=== PATIENT | male | born 1955 | race Two or more races ===

== ENCOUNTER 2024-06-06 09:24 | Emergency (ER) | payer MEDICARE, MEDICAID, SELFPAY ==
--- NOTE | 2024-06-06 | XR_ITS ---
Examination: MRI brain without intravenous contrast. Date and time of exam: June 06, 2024 1215 hours INDICATIONS: Nausea vertigo headache beginning 4:00 AM today Technique: Multiple axial and sagittal images of the brain obtained. Siemens high-resolution 1.5 Patricia short bore scanners utilized. Sagittal sections, T1-weighted, TR 500, TE 14, are performed. Axial sections proton-density and T2-weighted have been obtained. Inversion recovery axial images, TR 9, 260, TE 111, TI 2500. Diffusion weighted images, axial sections, TR 4800, TE 128, B value 1000 Axial sections, ADC map, TR 4800, TE 128 Findings: Enlargement of the sella turcica is not present. The optic chiasm and infundibular are not remarkable. Prepontine and interpeduncular cisterns are not enlarged. There is no localized enlargement of the medulla or lesley. Fourth ventricle and cerebellar tonsils appear normal in position. No subacute area of hemorrhage density is seen. Mass in the cerebellopontine angle region is not evident. Globes symmetrical. Orbital musculature including medial lateral rectus muscles do not exhibit abnormality. Diffusion-weighted images demonstrate no focus of restricted diffusion. Increased white matter signal not prominent Mass effect upon the ventricular system is not identified. Impression: Negative for acute hemorrhage, mass effect or midline shift No acute infarct
--- NOTE | 2024-06-06 09:38 | XR_ITS ---
Examination: CT brain head without contrast. 2-D sagittal coronal reconstructions Date and time of exam:June 06, 2024 1023 hours INDICATIONS: Severe headaches with dizziness today CTDI: vol (mGy):54 DLP: (mGycm):1060 Technique: Multiple CT axial sections of the brain have been obtained, 5 mm slice thickness. Contrast has not been administered. 2-D sagittal, coronal reconstructions have been obtained Low dose protocols were performed. One or more of the following dose reduction techniques were used; automated exposure control, adjustment of the mA and/or KV according to patient size, use of iterative reconstruction technique. Findings: No significant ventricular enlargement. Intra-axial or extra-axial hemorrhage density is not seen. No mass effect or midline shift Basal cisterns are not remarkable. Fourth ventricle is midline. Cranial vault intact. Impression: Negative for acute hemorrhage, mass effect or midline shift Chronic left mastoiditis As clinically warranted, consider brain MRI follow-up, stroke protocol
--- NOTE | 2024-06-06 09:39 | EKG_ITS ---
[facility] Test Date: 2024-06-06 Pat Name: CONTRERAS MOURA Department: Room: - Gender: Male Quality Assurance Coordinator: : [id number] Requested By: Rafa Ramos Order Number: [id number] Reading MD: Rafa Ramos Measurements Intervals [place] Rate: P: ME: QRS: QRSD: T: QT: QTc: Interpretive Statements NO FURTHER INTERPRETATION POSSIBLE ATYPICAL ECG WARNING: DATA QUALITY MAY AFFECT INTERPRETATION No previous ECG available for comparison /store/S0/[id number]
--- NOTE | 2024-06-06 09:40 | PD.EDRME ---
Rapid Medical Screening Exam [facility] Arrival date/time: 06/06/24 09:24 69-year-old male with no known medical history presents to the emergency room with a chief complaint of a right-sided headache, dizziness, nausea x 1 day. Patient states the symptoms began this morning. at bedside states the patient also has some right-sided facial droop that began 1 week ago. Patient denies any unilateral numbness. I have greeted and performed a focused initial assessment of this patient. A comprehensive ED assessment and evaluation of the patient, analysis of all test results, and completion of the medical decision making process will be conducted by additional ED providers. Chief Complaint: Dizziness Vital signs reviewed by provider: Yes
[2024-06-06 10:00] VITALS: BP 117/79; PULSE 54; RESP 20; TEMP 36.4; O2SAT 98; BMI 29.4
[2024-06-06 10:47] LABS: Basophils # (Auto) 0.1 Thou/mm3 (0.0-0.2); Basophils % (Auto) 1 % (0-2.5); Eosinophils # (Auto) 0.1 Thou/mm3 (0.0-0.5); Eosinophils % (Auto) 1 % (0-10); Hematocrit 46.8 % (41.0-53.0); Hemoglobin 15.3 g/dL (13.5-16.0); Immature Granulocytes % (Auto) 1 % (0-0); Immature Granulocytes Auto 0.03 Thou/mm3 (0.00-0.00); Lymphocytes # (Auto) 1.3 Thou/mm3 (1.0-4.8); Lymphocytes % (Auto) 22 % (10-50); Mean Corpuscular HGB Conc 32.7 g/dl (31.0-37.0); Mean Corpuscular Volume 76 fL (80-100); Monocytes # (Auto) 0.5 Thou/mm3 (0.0-0.8); Monocytes % (Auto) 9 % (0-12); Neutrophils # (Auto) 4.1 Thou/mm3 (1.8-7.7); Neutrophils % (Auto) 67 % (37-80); Nucleated Red Blood Cell % 0 /100 WBC (0); Platelet Count 268 Thou/mm3 (140-440); RDW Standard Deviation 42.6 fL (35.1-43.9); Red Blood Count 6.13 Miln/mm3 (4.50-5.90); White Blood Count 6.2 Thou/mm3 (3.8-10.6)
[2024-06-06 10:51] VITALS: BP 162/91; PULSE 52; RESP 15; O2SAT 98
[2024-06-06 11:04] LABS: Alanine Aminotransferase 23 U/L (10-49); Albumin, Serum 4.2 gm/dL (3.4-4.8); Albumin/Globulin Ratio 1.5 (1.2-2.2); Alkaline Phosphatase 75 U/L (46-116); Anion Gap 7 (7-16); Aspartate Amino Transferase 22 U/L (0-34); BUN/Creatinine Ratio 13 Ratio (12-20); Bilirubin,Total 0.9 mg/dL (0.3-1.2); Blood Urea Nitrogen 15 mg/dL (9-23); Calcium 9.8 mg/dL (8.3-10.6); Calcium (Corrected) 9.8 mg/dL (8.5-10.1); Carbon Dioxide 22.8 mMol/L (20.0-31.0); Chloride 107 mMol/L (98-107); Creatinine (Component) 1.2 mg/dL (0.6-1.3); Estimated Creatinine Clearance 67.5 mL/min (>60); Globulin 2.8 gm/dL (2.3-3.5); Glucose 190 mg/dL (74-106); Magnesium 1.8 mg/dL (1.6-2.6); Osmolality,Calculated 279 (275-295); Potassium 4.6 mMol/L (3.4-5.1); Sodium 137 mMol/L (136-145); Troponin I < 0.020 ng/mL (0.0-0.045); eGFR > 60 See Note
[2024-06-06 11:05] LABS: Collection Type, Urine Clean Catch
[2024-06-06 11:10] LABS: INR 1.1 (0.9-1.3); Partial Thromboplastin Time 27.9 Seconds (22.0-36.0); Prothrombin Time 11.9 Seconds (9.0-12.2)
[2024-06-06 11:16] LABS: Bilirubin,Urine Negative (Negative); Blood,Urine Negative (Negative); Clarity,Urine Clear (Clear/Hazy); Color,Urine Lt-Yellow (Lt Yel-Yel); Glucose, Urine Negative (Negative); Ketones,Urine Negative (Negative); Leukocyte Esterase,Urine Negative (Negative); Nitrite,Urine Negative (Negative); Protein,Urine Negative (Neg - Trace); RBC,Urine < 1 /hpf (0-3); Specific Gravity,Urine 1.021 (1.001-1.035); Squamous Epithelial Cell,Urine 3 /hpf (0-5); Urobilinogen,Urine Negative mg/dL (0.0-1.0); WBC,Urine 1 /hpf (0-5)
--- NOTE | 2024-06-06 11:16 | EDNOTE_ITS ---
ED General RME/HPI General Chief complaint: Dizziness Stated complaint: NAUCEOUS, DIZZY, HEADACHE SINCE 4AM Time Seen by Provider: 06/06/24 11:10 Arrival date/time: 06/06/24 09:24 CC: Right facial numbness, and a reported altered gait onset this morning. Patient states he is also and having trouble with his right eye however this was seen by an ophthalmology after he had a corneal abrasion several weeks ago. reports all of this this morning including nausea and a right sided headache. Patient is awake alert oriented nontoxic-appearing no focal deficits RME / HPI RME / HPI narrative: 06/06/24 09:24 69-year-old male with no known medical history presents to the emergency room with a chief complaint of a right-sided headache, dizziness, nausea x 1 day. Patient states the symptoms began this morning. at bedside states the patient also has some right-sided facial droop that began 1 week ago. Patient denies any unilateral numbness. I have greeted and performed a focused initial assessment of this patient. A comprehensive ED assessment and evaluation of the patient, analysis of all test results, and completion of the medical decision making process will be conducted by additional ED providers. Related Data Previous Rx's ?Medication ?Instructions ?Recorded valacyclovir 1 gram tablet 1,000 mg PO TID #21 tabs (Valtrex) ondansetron 4 mg disintegrating 4 mg PO Q8H #10 tabs 0 06/06/24 tablet Allergies Allergy/AdvReac Type Severity Reaction Status Date / Time No Known Allergies Allergy Verified 06/06/24 09:30 Review of Systems Review of Systems Narrative Review of Systems: GEN: No fever, no chills, no weight loss EYES: No discharge, no visual changes, no pain HEENT: No ear pain, no congestion, no sore throat PULM: No shortness of breath, no cough, no congestion CV: No chest pain, no dyspnea on exertion, no palpitations GI: No nausea, no vomiting, no diarrhea, no pain, no constipation : No frequency, no urgency, no dysuria MUSC/SKEL: No joint pain, no back pain SKIN: No rash PSYCH: No hallucinations, no depression HEME/LYMPH: No easy bleeding or bruising tendencies NEURO: No weakness, + headache Past Medical History Past Medical History NEUROLOGIC: Negative Neurological Disorders, Cerebrovascular Accident or Alzheimer's Disease CARDIAC: Negative Cardiac Disorders, Myocardial Infarction, Angina or Congestive Heart Failure RESPIRATORY: Negative Chronic Obstructive Pulmonary Disease (COPD) GASTROINTESTINAL: Negative Gastrointestinal Disorders, Liver Cancer or Pancreatic Cancer GENITOURINARY: Positive Renal Disease (R KIDNEY STONES) and Kidney Stones; Negative Dialysis or Prostate Cancer MUSCULOSKELETAL: Negative Musculoskeletal Disorders or Muscular Dystrophy ENT: Negative Blind or Deafness ENDOCRINE: Negative Endocrine Disorders, Diabetes Mellitus Type 1 or Diabetes Mellitus Type 2 HEMATOLOGIC: Negative Anemia OTHER HISTORY: Positive Shingles; Negative Down Syndrome, Developmental Delay or Prostate Cancer Family History FAMILY HISTORY: Positive Family Cancer (PT'S GRANDPA THROAT CANCER) Social History SMOKING STATUS: Never smoker ED Exam Narrative Physical exam: [General: Obese appears not in any acute distress Head normocephalic HEENT: Eyes pupils are PERRLA EOMs are intact mild ptosis on the right eyelid. Mouth symmetrical smile no facial droop tongue is midline swallow symmetrical phonation is normal oral mucosa pink dry membranes. No facial asymmetry. All other subsystems ATTR within acceptable limits Neck is supple nontender no JVD no edema Chest equal chest rise nontender to palpation Respiratory: Clear to auscultation no wheezes crackles or rubs CV: Rate rhythm is regular no murmurs rubs or clicks Abdomen is distended secondary to body habitus soft nontender no masses positive bowel sounds all 4 quadrants Back: No CVA tenderness no spinous process tenderness from cervical spine thoracic and lumbar spine Skin: Intact no petechiae rash induration ulceration or crepitus Extremities: Moving all extremity against resistance cap refill less than 2 seconds neurosensory intact Neuro: Awake alert oriented x2, person and place, Glascow coma 15 no focal deficits] Course Quality Measures none Orders Category Date Time Status EKG (ED ONLY) *Do not use* NOW Care 06/06/24 09:39 Completed MRI Screening NOW Care 06/06/24 11:[address] head/brain wo con Stat Exams 06/06/24 09:38 Completed EKG (ED Only) Stat Exams 06/06/24 09:39 Draft MR head/brain wo con Stat Exams 06/06/24 Completed B-Type Natriuretic Peptide Stat Lab 06/06/24 10:32 Completed CBC Stat Lab 06/06/24 10:32 Completed Comprehensive Metabolic Panel Stat Lab 06/06/24 10:32 Completed Drug Screen,Urine Stat Lab 06/06/24 10:20 Completed Magnesium Stat Lab 06/06/24 10:32 Completed Partial Thromboplastin Time Stat Lab 06/06/24 10:32 Completed Prothrombin Time with INR Stat Lab 06/06/24 10:32 Completed Troponin I Stat Lab 06/06/24 10:32 Completed Urinalysis Stat Lab 06/06/24 10:20 Completed Vital Signs Vital signs: Vital Signs Temperature 97.6 F 06/06/24 10:00 Pulse Rate 54 L 06/06/24 10:00 Respiratory Rate 20 06/06/24 10:00 Blood Pressure 117/79 06/06/24 10:00 Pulse Oximetry (%) 98 06/06/24 10:00 Oxygen Delivery Method Room Air 06/06/24 10:00 [facility] Patient data External records reviewed:: [facility] previous records Clinical information provided by:: patient and spouse Social determinants that could affect healthcare access:: none Patient has the following chronic illnesses:: None How is presenting disease/condition affected by chronic disease/condition?: u neffected by Evaluation data The following diagnostics were reviewed and interpreted by me:: lab results and radiology exam(s) Lab and/or radiology exams considered but not ordered:: CBC shows no leukocytosis no anemia thrombocytopenia Coags within acceptable limits CMP shows a glucose of 190 no other electrolyte imbalances renal impairment transaminitis or T. bili elevation. CT of the head shows a chronic left sinusitis no other acute findings interpreted by me read by radiology. MRI of the brain is negative for any acute finding. 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 Patient and are satisfied with the workup and are in agreeable to go home. Medications Medications considered but not ordered:: Negative Medication administrations:: None Consultations Consultation(s) initiated? (list below): No Diagnosis Differential Diagnosis ED Complaint MDM: CVA TIA nausea Most likely diagnosis given after review of the tests above:: Mariscal's palsy nausea Admission Indicated Admission indicated?: not indicated Explain why admission is indicated or not indicated:: Stable for discharge Admission Request Was there a request for admission?: No Disposition Plan Disposition Plan: Discharge Discharge Attestation Discharge Attestation: The patient and all family members were given an opportunity to ask questions and understood the discharge instructions. Discharge instructions specifically effects, indications for sooner follow up or return to the emergency department, and the expected course of current diagnosis. Patient condition: Stable Medical Decision Making Differential Diagnosis Differential Diagnosis: CVA TIA nausea Lab Data 06/06/24 10:32 06/06/24 10:32 Labs: Lab Results 06/06/24 06/06/24 Range/Units 10:20 10:32 WBC 6.2 (3.8-10.6) Thou/mm3 RBC 6.13 H (4.50-5.90) Miln/mm3 Hgb 15.3 (13.5-16.0) g/dL Hct 46.8 (41.0-53.0) % MCV 76 L (80-100) fL MCH 25.0 (25.0-35.0) pg MCHC 32.7 (31.0-37.0) g/dl RDW Std Deviation 42.6 (35.1-43.9) fL Plt Count 268 (140-440) Thou/mm3 Neut % (Auto) 67 (37-80) % Lymph % (Auto) 22 (10-50) % Cowley % (Auto) 9 (0-12) % Eos % (Auto) 1 (0-10) % Baso % (Auto) 1 (0-2.5) % Neut # (Auto) 4.1 (1.8-7.7) Thou/mm3 Lymph # (Auto) 1.3 (1.0-4.8) Thou/mm3 Cowley # (Auto) 0.5 (0.0-0.8) Thou/mm3 Eos # (Auto) 0.1 (0.0-0.5) Thou/mm3 Baso # (Auto) 0.1 (0.0-0.2) Thou/mm3 Immature Gran # (Auto) 0.03 H (0.00-0.00) Thou/mm3 Absolute Nucleated RBC 0.00 (0.00-0.00) Thou/mm3 Immature Gran % 1 H (0-0) % Nucleated RBC % 0 (0) /100 WBC PT 11.9 (9.0-12.2) Seconds INR 1.1 (0.9-1.3) APTT 27.9 (22.0-36.0) Seconds Sodium 137 (136-145) mMol/L Potassium 4.6 (3.4-5.1) mMol/L Chloride 107 (98-107) mMol/L Carbon Dioxide 22.8 (20.0-31.0) mMol/L Anion Gap 7 (7-16) BUN 15 (9-23) mg/dL Creatinine 1.2 (0.6-1.3) mg/dL Estim Creat Clear Calc 67.5 (>60) mL/min eGFR > 60 (60 - ) See Note BUN/Creatinine Ratio 13 (12-20) Ratio Glucose 190 H (74-106) mg/dL Calculated Osmolality 279 (275-295) Calcium 9.8 (8.3-10.6) mg/dL Corrected Calcium 9.8 (8.5-10.1) mg/dL Magnesium 1.8 (1.6-2.6) mg/dL Total Bilirubin 0.9 (0.3-1.2) mg/dL AST 22 (0-34) U/L ALT 23 (10-49) U/L Alkaline Phosphatase 75 (46-116) U/L Troponin I < 0.020 (0.0-0.045) ng/mL B-Natriuretic Peptide < 20 (0-100) pg/mL Total Protein 7.0 (5.7-8.2) gm/dL Albumin 4.2 (3.4-4.8) gm/dL Globulin 2.8 (2.3-3.5) gm/dL Albumin/Globulin Ratio 1.5 (1.2-2.2) Ur Collection Type Clean Catch Urine Color Lt-Yellow (Lt Yel-Yel) Urine Clarity Clear (Clear/Hazy) Urine pH 6.0 (5.0-7.0) Ur Specific [place] 1.021 (1.001-1.035) Urine Protein Negative (Neg - Trace) Urine Glucose (UA) Negative (Negative) Urine Ketones Negative (Negative) Urine Blood Negative (Negative) Urine Nitrite Negative (Negative) Urine Bilirubin Negative (Negative) Urine Urobilinogen (Auto) Negative (0.0-1.0) mg/dL Ur Leukocyte Esterase Negative (Negative) Urine RBC < 1 (0-3) /hpf Urine WBC 1 (0-5) /hpf Ur Squamous Epith Cells 3 (0-5) /hpf Urine Bacteria None (None) Urine Opiates Screen Negative (Negative) Urine Fentanyl Screen Negative (Negative) Ur Barbiturates Screen Negative (Negative) U Amphetamin/Meth Scrn Negative (Negative) U Benzodiazepines Scrn Negative (Negative) U Cocaine Metab Screen Negative (Negative) U Marijuana (THC) Screen Negative (Negative) Discharge Plan Plan Patient Disposition: HOME (Self Care) Patient condition on transfer: Stable Prescriptions/Referrals Prescriptions/Med Rec: New ondansetron 4 mg tablet,disintegrating 4 mg PO Q8H Qty: 10 0RF No Action valacyclovir [Valtrex] 1 gram tablet 1,000 mg PO TID Qty: 21 0RF Referrals: Leonel Mae MD [Primary Care Provider] - In 1 week Problem List Clinical Impression: Mariscal's palsy, Nausea Patient/Caregiver Discharge Instructions Education Materials: Nausea Vomit Control-Cancer Care, ED Mariscal's Palsy Print Language: Citizen Of [place] Stand Alone Forms: Kimberley Award Info., Patient Portal Info Letter, Work/School Release PA/SOCIAL MEDIA DIRECTOR Supervising Physician PA/SOCIAL MEDIA DIRECTOR Supervising Physician: Maximo Quintero ENP
[2024-06-06 11:18] LABS: Amphetamine/Methamp Scrn,U Negative (Negative); Barbiturate Screen,Urine Negative (Negative); Benzodiazepines Screen,Urine Negative (Negative); Benzoylecgonine Screen, Ur Negative (Negative); Fentanyl Screen,Urine Negative (Negative); Opiate Screen,Urine Negative (Negative); THC Screen,Urine Negative (Negative)
[2024-06-06 11:18] LABS: B-Type Natriuretic Peptide < 20 pg/mL (0-100)
[2024-06-06 14:16] VITALS: BP 153/85; PULSE 59; RESP 16; TEMP 36.7; O2SAT 98
== END 2024-06-06 14:25 | disposition home or self-care (01) ==
PROVIDERS: Nurse Practitioner Family; Emergency Provider Emergency Medicine; PCP Family Medicine
DX: G51.0 Bell's palsy (principal); R11.2 Nausea with vomiting, unspecified; R94.31 Abnormal electrocardiogram [ECG] [EKG]; J32.9 Chronic sinusitis, unspecified
CPT/HCPCS: 36415; 70450; 70551; 80053; 80307; 81001; 83735; 83880; 84484; 85025; 85610; 85730; 93005; 99284

== ENCOUNTER 2024-10-29 12:54 | Emergency (ER) | payer MEDICARE, MEDICAID, SELFPAY ==
[2024-10-29 12:56] VITALS: BMI 32.3
[2024-10-29 13:12] VITALS: BP 143/85; PULSE 85; RESP 18; TEMP 37.4; O2SAT 96
--- NOTE | 2024-10-29 13:20 | EKG_ITS ---
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
--- NOTE | 2024-10-29 13:20 | XR_ITS ---
Examination: PA chest single view Technique: Upright PA chest single view Date and time: October 29, 2024, 1356 hrs. Indications: Chest pain shortness of breath today. Findings: Normal heart size. The lungs are clear. The osseous structures are intact. Impression: No active disease.
--- NOTE | 2024-10-29 13:21 | PD.EDRME ---
Rapid Medical Screening Exam E Arrival date/time: 10/29/24 12:54 This is a 69-year-old male that comes into the emergency room with vague complaints. Patient complains of constant chest pain for the past couple days. Patient states that approximately 2 to 3 days ago he started feeling like he had trouble swallowing. Patient states he can swallow but it is almost painful. It feels like someone is stabbing him in the chest when he swallows anything. If patient is not eating he continues to have chest pain. Patient denies any past medical history. Patient denies any nausea vomiting diarrhea. I have greeted and performed a focused initial assessment of this patient. Initial appropriate labs ordered at this time. A comprehensive ED assessment and evaluation of the patient and analysis of all test and completion of medical decision making process will be conducted by additional ED provider. Chief Complaint: General Adult/Misc Complain Vital signs: Vital Signs Temperature 99.4 F 10/29/24 13:12 Pulse Rate 85 10/29/24 13:12 Respiratory Rate 18 10/29/24 13:12 Blood Pressure 143/85 H 10/29/24 13:12 Pulse Oximetry (%) 96 10/29/24 13:12 Oxygen Delivery Method Room Air 10/29/24 13:12
[2024-10-29 13:56] LABS: Basophils # (Auto) 0.0 Thou/mm3 (0.0-0.2); Basophils % (Auto) 0 % (0-2.5); Eosinophils # (Auto) 0.1 Thou/mm3 (0.0-0.5); Eosinophils % (Auto) 1 % (0-10); Hematocrit 48.8 % (41.0-53.0); Hemoglobin 15.5 g/dL (13.5-16.0); Immature Granulocytes Auto 0.04 Thou/mm3 (0.00-0.00); Lymphocytes # (Auto) 1.1 Thou/mm3 (1.0-4.8); Lymphocytes % (Auto) 10 % (10-50); Mean Corpuscular HGB Conc 31.8 g/dl (31.0-37.0); Mean Corpuscular Hemoglobin 24.6 pg (25.0-35.0); Mean Corpuscular Volume 78 fL (80-100); Monocytes # (Auto) 0.9 Thou/mm3 (0.0-0.8); Monocytes % (Auto) 8 % (0-12); Neutrophils # (Auto) 9.0 Thou/mm3 (1.8-7.7); Neutrophils % (Auto) 80 % (37-80); Nucleated Red Blood Cell # 0.00 Thou/mm3 (0.00-0.00); Nucleated Red Blood Cell % 0 /100 WBC (0); Platelet Count 208 Thou/mm3 (140-440); RDW Standard Deviation 43.4 fL (35.1-43.9); Red Blood Count 6.30 Miln/mm3 (4.50-5.90); White Blood Count 11.2 Thou/mm3 (3.8-10.6)
[2024-10-29 14:50] LABS: B-Type Natriuretic Peptide < 20 pg/mL (0-100)
[2024-10-29 14:52] LABS: Alanine Aminotransferase 20 U/L (10-49); Albumin, Serum 4.2 gm/dL (3.4-4.8); Albumin/Globulin Ratio 1.6 (1.2-2.2); Alkaline Phosphatase 80 U/L (46-116); Anion Gap 13 (7-16); Aspartate Amino Transferase 26 U/L (0-34); BUN/Creatinine Ratio 9 Ratio (12-20); Bilirubin,Total 1.3 mg/dL (0.3-1.2); Blood Urea Nitrogen 13 mg/dL (9-23); Calcium 10.0 mg/dL (8.3-10.6); Calcium (Corrected) 10.0 mg/dL (8.5-10.1); Carbon Dioxide 24.3 mMol/L (20.0-31.0); Chloride 98 mMol/L (98-107); Creatinine (Component) 1.4 mg/dL (0.6-1.3); Estimated Creatinine Clearance 60.4 mL/min (>60); Globulin 2.6 gm/dL (2.3-3.5); Glucose 262 mg/dL (74-106); Osmolality,Calculated 279 (275-295); Potassium 4.2 mMol/L (3.4-5.1); Sodium 135 mMol/L (136-145); Total Protein 6.8 gm/dL (5.7-8.2); Troponin I < 0.002 ng/mL (0.0-0.045); eGFR 55 See Note
--- NOTE | 2024-10-29 16:21 | PD.EDADULT ---
ED General RME/HPI General Chief complaint: General Adult/Misc Complain Stated complaint: FEELS LIKE FOOD STUCK IN CHEST x 2 DAYS Time Seen by Provider: 10/29/24 13:22 Arrival date/time: 10/29/24 12:54 CC: Chest pain center chest HPI ongoing for the past 2 days but similar to chest pain that has had when he is trying to swallow food over the past year. Patient states it takes a long time for his food to be swallowed and he can feel it going down his swallowing tube after drinking fluid. Patient denies shortness of breath difficulty breathing no prior history of similar events and is not following up on any this with the PCP. No other complaints including nausea vomiting diarrhea or abdominal pain. RME / HPI RME / HPI narrative: 10/29/24 12:54 This is a 69-year-old male that comes into the emergency room with vague complaints. Patient complains of constant chest pain for the past couple days. Patient states that approximately 2 to 3 days ago he started feeling like he had trouble swallowing. Patient states he can swallow but it is almost painful. It feels like someone is stabbing him in the chest when he swallows anything. If patient is not eating he continues to have chest pain. Patient denies any past medical history. Patient denies any nausea vomiting diarrhea. I have greeted and performed a focused initial assessment of this patient. Initial appropriate labs ordered at this time. A comprehensive ED assessment and evaluation of the patient and analysis of all test and completion of medical decision making process will be conducted by additional ED provider. Related Data Previous Rx's ?Medication ?Instructions ?Recorded valacyclovir 1 gram tablet 1,000 mg PO TID #21 tabs 02/11/20 (Valtrex) ondansetron 4 mg disintegrating 4 mg PO Q8H #10 tabs 06/06/24 tablet Allergies Allergy/AdvReac Type Severity Reaction Status Date / Time No Known Allergies Allergy Verified 10/29/24 12:59 Review of Systems Review of Systems Narrative Review of Systems: GEN: No fever, no chills, no weight loss EYES: No discharge, no visual changes, no pain HEENT: No ear pain, no congestion, no sore throat PULM: No shortness of breath, no cough, no congestion CV: + chest pain, no dyspnea on exertion, no palpitations GI: No nausea, no vomiting, no diarrhea, no pain, no constipation : No frequency, no urgency, no dysuria MUSC/SKEL: No joint pain, no back pain SKIN: No rash PSYCH: No hallucinations, no depression HEME/LYMPH: No easy bleeding or bruising tendencies NEURO: No weakness, no headache Past Medical History Past Medical History NEUROLOGIC: Negative Neurological Disorders, Cerebrovascular Accident or Alzheimer's Disease CARDIAC: Negative Cardiac Disorders, Myocardial Infarction, Angina or Congestive Heart Failure RESPIRATORY: Negative Chronic Obstructive Pulmonary Disease (COPD) GASTROINTESTINAL: Negative Gastrointestinal Disorders, Liver Cancer or Pancreatic Cancer GENITOURINARY: Positive Renal Disease (R KIDNEY STONES) and Kidney Stones; Negative Dialysis or Prostate Cancer MUSCULOSKELETAL: Negative Musculoskeletal Disorders or Muscular Dystrophy ENT: Negative Blind or Deafness ENDOCRINE: Negative Endocrine Disorders, Diabetes Mellitus Type 1 or Diabetes Mellitus Type 2 HEMATOLOGIC: Negative Anemia OTHER HISTORY: Positive Shingles; Negative Down Syndrome, Developmental Delay or Prostate Cancer Family History FAMILY HISTORY: Positive Family Cancer (PT'S GRANDPA THROAT CANCER) Social History SMOKING STATUS: Never smoker ED Exam Narrative Physical exam: [General: Obese not in any acute distress Head normocephalic HEENT: Eyes pupils are PERRLA EOMs are intact mouth pink moist membranes uvula is midline swallow symmetrical phonation is normal. All of the subsystems of HEENT are within acceptable limits Neck is supple nontender Chest equal chest rise nontender to palpation Respiratory: Clear to auscultation no wheezes crackles or rubs CV: Rate rhythm is regular no murmurs rubs or clicks Abdomen is distended secondary to body habitus soft nontender no masses positive bowel sounds all 4 quadrants Back: No CVA tenderness no spinous process tenderness from cervical spine thoracic and lumbar spine Skin: Intact no petechiae rash induration ulceration or crepitus Extremities: Moving all extremity against resistance cap refill less than 2 seconds neurosensory intact Neuro: Awake alert oriented x3 Glascow coma 15 no focal deficits] Course Quality Measures none Orders Category Date Time Status EKG (ED ONLY) *Do not use* NOW Care 10/29/24 13:21 Completed EKG (ED Only) Stat Exams 10/29/24 13:20 Draft XR chest 1V Stat Exams 10/29/24 13:20 Completed BNP [B-Type Natriuretic Peptide] Stat Lab 10/29/24 13:40 Completed CBC Stat Lab 10/29/24 13:40 Completed Comprehensive Metabolic Panel Stat Lab 10/29/24 13:40 Completed Troponin I Stat Lab 10/29/24 13:40 Completed Vital Signs Vital signs: Vital Signs Temperature 99.4 F 10/29/24 13:12 Pulse Rate 85 10/29/24 13:12 Respiratory Rate 18 10/29/24 13:12 Blood Pressure 143/85 H 10/29/24 13:12 Pulse Oximetry (%) 96 10/29/24 13:12 Oxygen Delivery Method Room Air 10/29/24 13:12 Discharge Plan Plan Patient Disposition: HOME (Self Care) Patient condition on transfer: Stable Prescriptions/Referrals Prescriptions/Med Rec: No Action valacyclovir [Valtrex] 1 gram tablet 1,000 mg PO TID Qty: 21 0RF ondansetron 4 mg tablet,disintegrating 4 mg PO Q8H Qty: 10 0RF Referrals: Leonel Mae MD [Primary Care Provider, Family Practice] - In 1 week Laureen Murcia MD [Physician, Gastroenterology] - In 1 week Problem List Clinical Impression: Chest pain, Hyperglycemia Patient/Caregiver Discharge Instructions Education Materials: ED Chest Pain, Uncertain Cause Additional Instructions: Suspect esophageal stricture follow-up with the GI specialist listed above if there is worsening of symptoms return the emergency room immediately for further evaluation. Print Language: Sudanese Stand Alone Forms: Supportie Award Info., Work/School Release, Patient Portal Info Letter PA/EVELIO Supervising Physician PA/EVELIO Supervising Physician: Maximo Quintero ENP [facility] Clinical Information Provided by patient Medical Records Reviewed [facility] Meds/Rx Considered, not Ordered None Labs/Rad/Tests considered, not Ordered None Chronic Illness/Social Conditions which may negatively complicate care or outcome(s)-explain: None or not applicable EKG EKG Interpretation narrative: EKG performed at 1326 shows a ventricular rate of 88 GA interval 160 QRS of 98 QTc of 387 normal sinus rhythm left axis deviation. Lab Interpretation Lab(s) interpretation(s): CBC shows a mild leukocytosis of 11.2 no anemia thrombocytopenia CMP shows no significant electrolyte imbalances the creatinine is 1.4. Blood glucose of 262. T. bili mildly elevated 1.3 no other transaminitis. Troponin and BNP within acceptable limits Imaging Provider imaging interpretation(s): X-rays interpreted by me read by radiology as negative for any acute finding. Diagnosis Differential diagnosis: ACS MN pneumonia Differential dx and/or dx ruled out: Probable esophageal stricture hyperglycemia Dispositon Disposition: Discharge Home
== END 2024-10-29 16:46 | disposition home or self-care (01) ==
PROVIDERS: Nurse Practitioner Family; Emergency Provider Emergency Medicine; PCP Family Medicine
DX: R09.A2 Foreign body sensation, throat (principal); R07.9 Chest pain, unspecified; R73.9 Hyperglycemia, unspecified
CPT/HCPCS: 36415; 71045; 80053; 83880; 84484; 85025; 93005; 99283